=== PATIENT | female | born 1970 | race Caucasian/White ===

== ENCOUNTER 2019-02-07 21:26 | Emergency (ER) | payer BC, OTHER ==
[~2019-02-07] VITALS: Ht 157.5 cm; Wt 65.3 kg
[~2019-02-07 21:26] MED LIST: AMITRIPTYLINE H10 M1 PO; ASPIRIN325 PO; PRILOSEC 20 MG20 MG PO
[2019-02-07 21:33] VITALS: BP 145/89
[2019-02-07] MEDS ORDERED: KEFLEX500 M1 PO (22:34)
== END 2019-02-07 22:48 | disposition home or self-care (01) ==
LOC: ER 21:26
DX: L03.116 Cellulitis of left lower limb (principal); G43.909 Migraine, unspecified, not intractable, without status migrainosus